=== PATIENT | male | born 1950 | race Caucasian/White ===

== ENCOUNTER 2016-06-11 05:50 | Emergency (ER) | payer MEDICARE, OTHER | END 2016-06-11 08:12 | disposition home or self-care (01) | DX: R07.89 Other chest pain (principal); F41.9 Anxiety disorder, unspecified; I10 Essential (primary) hypertension; E03.9 Hypothyroidism, unspecified; K21.9 Gastro-esophageal reflux disease without esophagitis; Z79.82 Long term (current) use of aspirin ==

== ENCOUNTER 2019-05-02 08:26 | Outpatient (CLI) | payer OTHER ==
[2019-05-02] MEDS ORDERED: REGADENOSON 0.4 MG/5 ML SYRINGE IVP ONE ×2 (10:08→11:36)
[2019-05-02] MEDS ORDERED: AMINOPHYLLINE 250 MG/10 ML VIAL ONE (10:09)
--- NOTE | 2019-05-02 13:25 | CARDIAC PROCEDURE NOTE ---
DATE OF SERVICE: 05/02/2019 Physician: Carey Gallegos MD, [facility] INDICATION: Chest pain. CARDIAC RISK FACTORS: Hypertension, male gender, family history of heart disease. DESCRIPTION OF PROCEDURE: After signing informed consent, the patient underwent a Lexiscan pharmaceutical stress test with nuclear myocardial perfusion imaging. RESTING HEART RATE: 86. PEAK HEART RATE: 118. RESTING BLOOD PRESSURE: 148/69. PEAK BLOOD PRESSURE: 153/63. Lexiscan was infused per protocol. The patient developed brief flushing, he had no chest pain, shortness of breath or nausea. RESTING EKG: Normal sinus rhythm, rate 80, left atrial enlargement, otherwise within normal limits. EKG AT PEAK: Diffuse upsloping ST depressions of 1 mm are noted. SUMMARY: 1. Nearly normal EKG. 2. No symptoms of chest pain developed during pharmaceutical stress. 3. Nonspecific EKG changes occurred with pharmaceutical stress, not specific for ischemia. 4. Nuclear images reported separately. 5. This patient's cardiac risk based on all the above: Low-Moderate. cc: DANNY Gustafson TD: 05/02/2019 13:00 MTDItalo
--- NOTE | 2019-05-03 11:06 | Nuclear Medicine Report ---
Reason: CHEST PAIN Procedure Date: 05/02/2019 Accession Number: [id number] / [id number] Procedure: NM - Myocardial Perfusion STR/RST CPT Code: Final Report FULL RESULT: EXAM: SINGLE-ISOTOPE PHARMACOLOGICAL STRESS TEST WITH REGADENOSON. SINGLE-ISOTOPE AND ONE-DAY REST/STRESS MYOCARDIAL PERFUSION SCANS WITH TOMOGRAPHIC IMAGING, QUANTITATIVE ANALYSIS, WALL MOTION ANALYSIS AND CALCULATION OF EJECTION FRACTION. EXAM DATE: 05/02/2019 12:09 PM. CLINICAL HISTORY: CHEST PAIN. COMPARISON: None. TECHNIQUE: After the intravenous administration of 10.5 mCi of Tc-99m sestamibi, a rest myocardial perfusion scan was done with tomography. Motion correction was applied when appropriate. After an appropriate delay, pharmacological stress was performed with the infusion of 0.4 mg regadenoson per protocol. According to protocol, 40.5 mCi of Tc-99m sestamibi was injected for stress myocardial perfusion scan. Motion correction was applied when appropriate. Gated tomographic images were obtained for wall motion analysis and computation of left ventricular ejection fraction. FINDINGS: Perfusion images: Left ventricular chamber size appears normal at rest and unchanged at stress. No convincing fixed perfusion deficits. Moderate size, moderate-severe reversible perfusion deficit involving the basal half inferolateral wall. SSS 10, SRS 4, SDS 6. Gated images: No convincing focal wall motion abnormality. Calculated left ventricular EDV 98 mL, ESV 34 mL. The left ventricular ejection fraction is estimated at 65% (normal > 50%). IMPRESSION: 1. Moderate size, moderate-severe reversible inferolateral wall perfusion deficit suggesting stress-induced ischemia. 2. No convincing fixed perfusion deficits. 3. Left ventricular ejection fraction of 65% (normal > 50%). Please correlate findings with stress ECG tracings and procedure notes. [facility]
== END 2019-05-02 08:27 | disposition home or self-care (01) ==
LOC: DI 08:26
PROVIDERS: ATTEND Nurse Practitioner Family
DX: R07.9 Chest pain, unspecified (principal); I11.9 Hypertensive heart disease without heart failure; Z82.49 Family history of ischemic heart disease and other diseases of the circulatory system
CPT/HCPCS: 78452; 93017; A9500; J2785

== ENCOUNTER 2020-05-02 13:37 | Outpatient (CLI) | payer OTHER ==
--- NOTE | 2020-05-02 14:51 | XRAY Report ---
PROCEDURE: Cervical Spine w/Flex/Ext INDICATIONS: NECK PAIN TECHNIQUE: 5 views of the cervical spine were acquired. COMPARISON: None. FINDINGS: Bones: No fractures or dislocations to the C7 level. 2 mm anterolisthesis of C4 on C5 on the flexion view appears to reduce on the extension and neutral l ateral views. Scattered multilevel endplate spurring and diffuse facet arthropathy. Severe narrowing of the C5-C6 and C6-C7 disc spaces. Trace retrolisthesis of C5 on C6 is grossly unch anged. Soft tissues: Prevertebral soft tissues are normal in thickness. Scattered carotid atherosclerotic calcified plaque. IMPRESSION: Multilevel cervical spondylosis, most pronounced at C5-C6 and C6-C7. Grade 1 anterolisthesis of C4 on C5 with the lateral flexion view appears to reduce on neutral and ex tension views. This raises the possibility of instability. Please correlate clinically. Diffuse facet arthropathy. Reviewed by: Tom Carter MD on 05/02/2020 2:50 PM PST Approved by: Tom Carter MD on 05/02/2020 2:50 PM PST Station ID: [id number]
== END 2020-05-02 13:38 | disposition home or self-care (01) ==
LOC: DI 13:37
PROVIDERS: ATTEND Nurse Practitioner Family
DX: M47.812 Spondylosis without myelopathy or radiculopathy, cervical region (principal); M43.12 Spondylolisthesis, cervical region